=== PATIENT | male | born 1965 | race Caucasian/White ===

== ENCOUNTER 2017-08-12 07:31 | Inpatient (IN) | payer OTHER ==
[~2017-08-12] VITALS: Ht 180.3 cm; Wt 107.5 kg
[2017-08-12] MEDS ORDERED: TUMS300 MG PO (07:45)
--- NOTE | 2017-08-12 20:00 | OR ---
[facility] [address], [place] [address] Signed DATE OF OPERATION: 08/12/2017 SURGEON: Shayna Du MD PREOPERATIVE DIAGNOSES: 1. Acute calculous cholecystitis. 2. Fatty infiltration of liver. POSTOPERATIVE DIAGNOSES: 1. Acute calculous cholecystitis. 2. Fatty infiltration of liver. PROCEDURES: 1. Laparoscopic cholecystectomy with intraoperative cholangiogram, prolonged complicated difficult. 2. Surgeon-directed fluoroscopy. ANESTHESIA: General endotracheal; Oren Booker CRNA and local 0.25% Marcaine with epinephrine 20 mL. INDICATION: This 52-year-old white man presented to the emergency room earlier in the day, having been awakened from sleep at approximately 4 a.m. with severe epigastric pain penetrating into the back. He presented to the emergency room, was evaluated by Dr. Jhaveri and found to have on ultrasound a single large gallstone wedged in the infundibulum of the gallbladder with edema and inflammation of the gallbladder clinically. He has been fluid resuscitated, given intravenous antibiotics, parenteral pain medication and so forth and is now admitted to undergo cholecystectomy preferred by laparoscopic approach. The risks of bleeding, infection, bile duct injury, need for open procedure, and so forth were all reviewed with him. He understands and wished to proceed. FINDINGS: Indeed the gallbladder was acutely inflamed. It had chronic inflammation as well. The liver was fatty infiltrated. There was no evidence of cirrhosis. The operation was prolonged, complicated, and difficult lasting at least 4 times longer than usual. The cholangiogram was normal showing conventional anatomy. No sign of intraductal filling defect. The gallbladder indeed had a stone about 3 cm in size, wedged in the infundibulum. Dissection from the liver was challenging on the basis of its chronic and acute inflammation. Electronically Signed By: SHAYNA DU MD 08/12/171999 PATIENT NAME: MELANY GOODE II OPERATIVE REPORT DATE OF : 65 REPORT #: [id number] PHYSICIAN: SHAYNA DU MD PCP: CYNTHIA AMANDA REPORT IS CONFIDENTIAL AND NOT TO BE RELEASED WITHOUT AUTHORIZATION [facility] [address], [place] [address] Signed DESCRIPTION OF PROCEDURE: The patient was brought to the operating room, given a general endotracheal anesthetic. Preoperative antibiotic Ancef had been given. Sequential compression device stockings were used and heparin subcutaneously administered. The abdomen was prepared with chlorhexidine solution and draped sterilely. An infraumbilical incision was made and using an open Luis Manuel cannula technique, the abdomen was entered and pneumoperitoneum achieved to a level of 14 mmHg with carbon dioxide gas. Intraabdominal inspection showed the gallbladder to be acutely inflamed and distended. The liver was fatty infiltrated. Three additional trocars were placed in usual configuration in the subxiphoid, right midclavicular, and right anterior axillary line. The gallbladder could not be grasped due to its distention and therefore using a laparoscopic trocar needle device, a gallbladder was decompressed of some green bile. The puncture site was grasped and elevated cephalad. The gallbladder could not be elevated too much given the bulkiness of the liver. Retraction of the infundibulum was such that given the edema and inflammation of the gallbladder could not easily be seen and on that basis, an another 5 mm epigastric trocar port was placed and a fan retractor was used to retract the duodenum and some omentum. This allowed for dissection of infundibulum of the gallbladder and using blunt electrocautery dissection ultimately, the cystic duct was identified. Cystic arterial branches were clipped as necessary. When the critical view was quite clearly obtained, a clip was applied across gallbladder cystic duct junction and a transverse choledochotomy made in the cystic duct. Egress of clear bile was noted from the cystic duct. Using an FiveRuns type cholangiocatheter system, intraoperative cholangiography was undertaken showing free flow of contrast in the biliary tree with prompt emptying into the duodenum. There was no sign of filling defect or biliary anomaly. The catheter was removed and the cystic duct was triply clipped and divided. The gallbladder was then dissected free in a retrograde fashion. This was rather long and laborious as it was impressively intrahepatic and quite friable and easily made to bleed. Ultimately, the appropriate plane was established and the gallbladder completely excised. The gallbladder was placed in an Endobag and extracted through the infraumbilical port site without problem. It was opened on the back table by the circulating nurse and found to have [id number] inflammatory change of the mucosa and a single large gallstone about 3 cm in size, oval-shaped. Irrigation was undertaken in subhepatic space. There was reasonably good hemostasis. Some Aileen hemostatic powder was applied to the raw surface of the liver bed. Excess irrigation fluid was suctioned free. The trocars were removed under direct visualization showing no sign of bleeding. The infraumbilical fascial incision was reapproximated with interrupted 0 Vicryl suture. All wounds were copiously irrigated with saline solution and skin closed with interrupted 3-0 Vicryl. Steri-Strips were applied. Electronically Signed By: SHAYNA DU MD 08/12/171999 PATIENT NAME: MELANY GOODE II [place] OPERATIVE REPORT DATE OF : 65 REPORT #: [id number] PHYSICIAN: SHAYNA DU MD PCP: CYNTHIA AMANDA REPORT IS CONFIDENTIAL AND NOT TO BE RELEASED WITHOUT AUTHORIZATION [facility] [address] [place] [address] Signed The patient tolerated the procedure well, was ultimately extubated and transferred to recovery room in good condition. MD SANTINO Echeverria/HOANGL /[id number] cc: Damian Jhaveri Copies: DAMIAN JHAVERI Electronically Signed By: SHAYNA DU MD 08/12/171999 PATIENT NAME: MELANY GOODE II [place] OPERATIVE REPORT DATE OF : 65 REPORT #: [id number] PHYSICIAN: SHAYNA DU MD PCP: CYNTHIA AMANDA REPORT IS CONFIDENTIAL AND NOT TO BE RELEASED WITHOUT AUTHORIZATION
--- NOTE | 2017-08-12 20:00 | HP ---
[facility] [address] [place], [place] [address] Signed ADMISSION DATE: 08/12/2017 REASON FOR ADMISSION: Acute calculous cholecystitis. HISTORY: This 52-year-old white man who presents to the emergency room this morning and evaluated by Dr. Little for pain that began approximately 3 in the morning. The patient works as a cook at [employer] and took home a ROAST BEE[employer] dinner, and ate it it late in the evening and then awakened with epigastric pain which progressed to rather severe substernal and subxiphoid pain with associated nausea and vomiting. He presented to the emergency room where he was evaluated by Dr. Little. Lab studies were normal including Chem profile, CBC and urinalysis, but an ultrasound was performed showing a single gallstone, wedge in the infundibulum of the gallbladder, consistent with acute calculous cholecystitis. He is admitted for further evaluation and care. PAST MEDICAL HISTORY: Significant for history of appendectomy. The patient has also had gastroesophageal reflux in the past, for which he has taken Prilosec. He has no medicines that he takes at admission, though he previously was on medication for hyperglycemia one time. It is notable that he is in a [facility] house upon his release from halfway in the [place], [place] areas. He had been incarcerated for 15 years. He says that this time he is taken up two jobs so has to pay restitution as part of his release provisions. He lives alone. He has a sister who lives in [place] but no other family members and he lives alone otherwise. REVIEW OF SYSTEMS: He denies any shortness of breath or chest pain. He has no precordial chest pain or left arm pain. His symptoms have improved markedly since admission to the hospital with fluids, antibiotics, and parenteral pain medication. He notes that his pain was mostly in the epigastric area like a "spike driven through the back" including back pain. PHYSICAL EXAMINATION: Electronically Signed By: SHAYNA DU MD 08/12/171999 PATIENT NAME: MELANY GOODE II SHIELDS HISTORY AND PHYSICAL DATE OF : 65 REPORT #: [id number] PHYSICIAN: SHAYNA DU MD PCP: CYNTHIA AMANDA REPORT IS CONFIDENTIAL AND NOT TO BE RELEASED WITHOUT AUTHORIZATION [facility] [address] [place], [place] [address] Signed GENERAL: A somewhat obese white man who has a rather large mustache and less full whiteside. He does not appear systemically toxic. HEENT: Trachea is midline. Mucous membranes are slightly dry. He has received bolus fluids, but there is no IV running, which will be remedied soon. He has no carotid bruit. CHEST: Clear. HEART: Regular without murmur. ABDOMEN: Obese, but soft. Palpation reveals mild tenderness in the epigastric and subcostal area. There is no mass. There is no ascites. EXTREMITIES: Show no clubbing, cyanosis, or edema. LABORATORY DATA: Show a white count of 8.4, hematocrit 47, platelets 244,000. Chem profile is essentially normal. Glucose elevated at 165. Lipase 18. Urinalysis; specific gravity of 1.027, rbc's 5 per high-powered field, white cells 2, otherwise normal. I have reviewed his ultrasound images and the report, findings show a large stone lodged in the neck of the gallbladder with some sludge, but no wall thickening. There are tiny nodules along the wall suggesting gallbladder polyps, more likely adherent noncalcified stone. ASSESSMENT: The patient has acute calculous cholecystitis. He has underlying low-grade hyperglycemia, currently untreated. He tells me that he is assigned to a physician in the [facility] Plan, but has not followed through with that provider. On that basis, he does not have any medications he is taking currently. I discussed with him the pathophysiology of the problem acute calculous cholecystitis. I have recommended cholecystectomy preferred by a laparoscopic approach. The risks of bleeding, infection, bile duct injury, need for open procedure, and other unforeseen complications were reviewed in detail with him, he understands. He understands that also an open procedure may be necessary. Understanding this, he wished to proceed. PLAN: We will continue his IV fluid resuscitation, anticipating surgery at the earliest opportunity. Shayna Du MD Electronically Signed By: SHAYNA DU MD 08/12/171999 PATIENT NAME: MELANY GOODE II SHIELDS HISTORY AND PHYSICAL DATE OF : 65 REPORT #: [id number] PHYSICIAN: SHAYNA DU MD PCP: CYNTHIA AMANDA REPORT IS CONFIDENTIAL AND NOT TO BE RELEASED WITHOUT AUTHORIZATION [facility] [address] [place] [id number] Signed /KARLOS /[id number] cc: Damian Little Copies: SHAKILADAMIAN Campos Electronically Signed By: SHAYNA DU MD 08/12/17 2000 PATIENT NAME: MELANY GOODE II SHIELDS HISTORY AND PHYSICAL DATE OF : 65 REPORT #: [id number] PHYSICIAN: SHAYNA DU MD PCP: CYNTHIA AMANDA REPORT IS CONFIDENTIAL AND NOT TO BE RELEASED WITHOUT AUTHORIZATION
[2017-08-13] MEDS ORDERED: HYDROCODON-ACE1 EA10 PO (08:35)
[2017-08-13] MEDS ORDERED: MOTRIN IB200 MG PO (08:36)
[2017-08-13] MEDS ORDERED: TYLENOL325 MG PO (08:36)
--- NOTE | 2017-08-13 21:53 | EKG ---
[facility] [address] [facility] [place] [address] Signed Sinus bradycardia Nonspecific T wave abnormality Abnormal ECG No previous ECGs available Confirmed by DALLIN LUTZ MD ([id number]) on 08/13/2017 9:53:35 PM Electronically Signed By: DALLIN LUTZ MD 08/13/17 2153 PATIENT NAME: MELANY GOODE II [place] Electrocardiogram DATE OF : 65 PHYSICIAN: DALLIN LUTZ MD REPORT #: [id number] REPORT IS CONFIDENTIAL AND NOT TO BE RELEASED WITHOUT AUTHORIZATION
== END 2017-08-13 10:15 | disposition home or self-care (01) | DRG 419 ==
LOC: ED 07:31 → MS 07:33 → ED 10:23 → MS 10:23
PROVIDERS: ADMIT Surgery
PROC: BF101ZZ Fluoroscopy of Bile Ducts using Low Osmolar Contrast (ICD-10-PCS; 2017-08-12)
PROC: 0FT44ZZ Resection of Gallbladder, Percutaneous Endoscopic Approach (ICD-10-PCS; principal; 2017-08-12 14:16)
DX: K80.12 Calculus of gallbladder with acute and chronic cholecystitis without obstruction (principal); E66.9 Obesity, unspecified; K76.0 Fatty (change of) liver, not elsewhere classified; R73.9 Hyperglycemia, unspecified; F17.290 Nicotine dependence, other tobacco product, uncomplicated; Z68.32 Body mass index [BMI] 32.0-32.9, adult; Z88.8 Allergy status to other drugs, medicaments and biological substances
CPT/HCPCS: 00790; 74300; 76705; 80053; 81001; 83690; 85025; 88304; 93005; 93010; 96361; 96374; 96375; 99285; G0378; J0690; J1170; J1644; J1885; J2270; J2405; J2704; J2765; J3010; J7120; Q9967

== ENCOUNTER 2018-06-23 20:50 | Emergency (ER) | payer OTHER ==
[~2018-06-23] VITALS: Ht 180.3 cm; Wt 104.3 kg
[~2018-06-23 20:50] MED LIST: HYDROCODON-ACE1 EA10 PO; MOTRIN IB200 MG PO; TUMS300 MG PO; TYLENOL325 MG PO
[2018-06-23] MEDS ORDERED: DOXYCYCLINE HY100 MG PO (21:55)
== END 2018-06-23 22:03 | disposition home or self-care (01) ==
LOC: ED 20:50
DX: J20.9 Acute bronchitis, unspecified (principal); J01.90 Acute sinusitis, unspecified; F17.200 Nicotine dependence, unspecified, uncomplicated; Z88.8 Allergy status to other drugs, medicaments and biological substances; Z91.048 Other nonmedicinal substance allergy status
CPT/HCPCS: 71045; 87502; 99284-25